=== PATIENT | male | born 1935 | race Caucasian/White ===

== ENCOUNTER → 2016-12-29 | Day surgery (SDC) | payer OTHER ==
[2016-12-25 15:49] VITALS: Ht 177.8 cm; Wt 75.0 kg
[~2016-12-29] VITALS: Ht 177.8 cm; Wt 75.0 kg
[~2016-12-29] MED LIST: ALBUAER19 INH; ASPI-435 PO; ATROPINE SULFATE 0.1 MG/ML 5ML SYR IV PRN; BUPIVACAINE 0.5 % 5 MG/1 ML PF 10ML VIAL ONE; CALC-393 PO; CEFAZOLIN 1000MG/55 ML D5W IV SCH; CEFU500T16 PO; CEPH-571 PO; CYAN100T PO; DOXY100C76 PO; FENTANYL CITRATE INJ 50 MCG/1 ML 2 ML VIAL IV PRN; FENTANYL CITRATE INJ 50 MCG/1 ML 2 ML VIAL ONE; GARL400T4 PO; HYDR-5688 PO; KRIL1000 PO; LACTATED RINGER'S 1000ML 1,000 ML IV SCH; LIDOCAINE HCL 1% 20 ML VIAL ONE; MRC50 PO; MULTTAB58 PO; ONDANSETRON INJ 2 MG/ML 2 ML VIAL IV PRN; OXYCODONE/ACETAMINOPHEN 5-325 TAB PO PRN; PROPOFOL IV EMULSION 10 MG/ML 20 ML VIAL IV ONE; SELE200T2 PO; SODIUM CHLORIDE 0.9% 1000ML 1,000 ML IV SCH; SYMIN160 INH; TRAV0.00 OPB
--- NOTE | 2016-12-29 06:39 | History & Physical Bridge - [place] ---
H&P Re-Evaluation Bridge Note: I have examined the patient, reviewed the History & Physical and in the interval since the performance of the History & Physical I have noted the following changes of clinical significance: No changes noted
--- NOTE | 2016-12-29 07:47 | [facility] Post Operative Brief Note ---
Immediate Operative Summary Operative Date December 29, 2016. Pre-Operative Diagnosis Right Long Finger Chronic Paronychial Infection Post-Operative Diagnosis Same Procedure(s) Performed Right Long Finger Incision And Drainage REMOVAL PARTIAL NAIL Surgeon Dr Rivera Graphics Programmer Surgeon(s) Saima Benjamin PA-C Estimated Blood Loss 0ml Findings ABOVE Specimens Culture Right Long Finger Drains NONE Anesthesia LOCAL IV SEDATION Complication(s) None Disposition
[2016-12-29 07:50] VITALS: TEMP 37
--- NOTE | 2016-12-29 07:54 | Discharge Instructions-SurgCtr ---
Discharge Instructions Date of Service December 29, 2016. Visit Reason for Visit: Right Long Finger Chronic Paronychial Infection Discharge Discharge Diagnosis / Problem: SAME ABOVE Discharge Goals Goal(s): Decrease discomfort, Improve function Activity Recommendations Activity Limitations: as noted below Lifting Limitations: until after follow-up appointment Exercise/Sports Limitations: until after follow-up appointment Shower/Bathe: keep incision dry Anesthesia . Post Anesthesia Instructions: If you have had General Anesthesia or IV Sedation: * Do not drive today. * Resume driving when surgeon permits. * Do not make important decisions or sign legal documents today. * Call surgeon for: 1. Temperature elevations greater than 101 degrees F. 2. Uncontrollable pain. 3. Excessive bleeding. 4. Persistent nausea and vomiting. 5. Medication intolerance (nausea, vomiting or rash). * For nausea and vomiting use only clear liquids such as: tea, soda, bouillon until nausea subsides, then gradually increase diet as tolerated. * If you have any concerns or questions, call your surgeon's office. If physician is unavailable and it is an emergency, call 911 or go to the nearest emergency room. . Instructions / Follow-Up Instructions / Follow-Up MEDICATIONS: * Resume previous medications unless instructed otherwise by your surgeon. * Always take pain medication on a full stomach or with food to avoid upset stomach. * Do not drink alcohol or drive while taking narcotics. * Ibuprofen or Tylenol may be taken if narcotic not needed. SPECIAL CARE INSTRUCTIONS: __ None _X_ Keep extremity elevated and iced x 48 hours; apply ice 20-30 minutes 8-10 times/day. May remove at night. __ Sling __24 hrs/day __ Remove at night __ Shoulder Immobilizer __ 24 hrs/day __ Remove at night _X_ Dressing _X_ Maintain until seen in office, may shower with plastic over site __ Remove dressings in 24-48 hours and then may shower __ Cover incisions with band-aids after showering __ Do not remove steri-strips Call physician if chills or temperature rises above 102 degrees or pain unrelieved by prescribed pain medications at . . Diet Recommendations Home Diet: resume previous diet Procedures Procedures Performed: Right Long Finger Incision And Drainage REMOVAL PARTIAL NAIL Pending Studies Studies pending at discharge: yes List of pending studies: AEROBIC CULTURE OF WOUND Medical Emergencies . Who to Call and When: Medical Emergencies: If at any time you feel your situation is an emergency, please call 911 immediately. . Non-Emergent Contact Non-Emergency issues call your: Primary Care Provider . . "Provider Documentation" section prepared by Lawrence Benjamin. .
[2016-12-29 08:28] VITALS: BP 141/87; PULSE 66; O2SAT 99
--- NOTE | 2016-12-29 08:28 | OPERATIVE REPORT ---
DATE OF OPERATION: 12/29/2016 PREOPERATIVE DIAGNOSIS: Chronic peroneal fracture, right long finger with possible foreign body of splinter. POSTOPERATIVE DIAGNOSIS: Same. PROCEDURE: I\T\D peroneal infection with removal of partial nail, debridement of tissue of the right long finger. SURGEON: Dr. Rivera. SURGICAL NURSE: Lawrence Benjamin PA-C. ANESTHESIOLOGIST: Dr. Harper. ANESTHESIA: Local with IV sedation. DRAINS: None. COMPLICATIONS: None. CONDITION: The patient tolerated the procedure well and returned to the recovery room in apparent satisfactory condition. INDICATIONS FOR SURGERY: Hussein is a 81-year-old male who had a splint underneath his nail months back. It has been festering and and causing peroneal infection. Would like to go ahead and I\T\D and clean it out. Procedure, expected outcomes, side effects were all explained. PROCEDURE: The patient was taken to the OR at which time he was placed supine on the operating table, given IV sedation. A finger block was done with 1% Xylocaine. Hand was then prepped and draped in usual sterile fashion for surgery. I used a 5/8 inch Hanson drain for Esmarch and tourniquet. We then took a 15 blade and lifted up the nail fold. Got a little bit of drainage out of it. You could see there was areas where it was staining, almost from the wood splinter that was in here partially with probably being absorbed. We then lifted up the nail and removed a portion of the ulnar aspect of the nail and drained out paronychial area. We irrigated it and debrided it. We did take a culture too. I used some Marcaine for postop pain control. I did pack it with Xeroform and put him in a sterile dressing Conform and returned back to recovery room in apparent satisfactory condition. I attest to the content of the Intraoperative Record and any orders documented therein. Any exceptio ns are noted below.
--- NOTE | 2016-12-29 08:38 | Anesthesia Progress Nt - [facility] ---
Anesthesia Post Op Note Date & Time December 29, 2016 at 08:38 Vital Signs Pain Intensity: 0 Vital Signs Past 12 Hours Date Time Temp Pulse Resp B/P Pulse Ox O2 Delivery O2 Flow Rate FiO2 12/29/16 08:28 66 16 141/87 99 Room Air 12/29/16 07:50 37.0 64 14 138/75 99 Room Air 12/29/16 06:29 36.5 70 134/82 96 Room Air Notes Mental Status: alert / awake / arousable, participated in evaluation Pt Amnestic to Procedure: Yes Nausea / Vomiting: adequately controlled Pain: adequately controlled Airway Patency, RR, SpO2: stable & adequate BP & HR: stable & adequate Hydration State: stable & adequate Anesthetic Complications: no major complications apparent
--- NOTE | 2017-01-27 13:38 | EDITING REQUIRED CODING QUERY ---
CQCODING QUERY DATE OF SERVICE: 12/29/16 To promote full compliance with coding requirements relating to patient care, provider participation is requested in all cases of head transfer clerk uncertainty. Please assist us with the question(s) below: Coding Question(s): WAS THE PROCEDURE DONE ON THE LEG OR FINGER; DICTATION STATES CHRONIC PERONEAL FRACTURE; DEBRIDEMENT OF RIGHT LONG FINGER. PER CODE BOOK PERONEAL IS LEG. Physician's Response(s): PLACE ANSWER HERE __finger I&D for chronic paronychial infection of the nail/finger Thank you Jimena Campbell Principal Diagnosis: "_that condition established after study, to be chiefly responsible for occasioning the admission of the patient to the hospital for care." Co-Existing Principal Diagnosis: "_when two or more diagnoses equally meet the criteria for principal diagnosis as determined by the circumstances of admission, diagnostic work up, and/or therapy provided, and the Alphabetic Index, Tabular List, or another coding guideline does not provide sequencing direction, any one of the diagnoses may be sequenced first." "When the physician has documented what appears to be a current diagnosis in the body of the record, but has not included the diagnosis in the final diagnostic statement, the physician should be asked whether the diagnosis should be added." (Source Coding [facility] 2 QTR90. p3-4)
== END | disposition home or self-care (01) ==
LOC: X.SURG 06:17
PROVIDERS: ATTEND Orthopaedic Surgery
DX: L03.011 Cellulitis of right finger (principal); Z85.820 Personal history of malignant melanoma of skin; J45.909 Unspecified asthma, uncomplicated; Z79.82 Long term (current) use of aspirin; M19.90 Unspecified osteoarthritis, unspecified site; L60.8 Other nail disorders

== ENCOUNTER → 2017-05-05 | Outpatient (CLI) | payer OTHER ==
[~2017-05-05] MED LIST changes: -ATROPINE SULFATE 0.1 MG/ML 5ML SYR IV PRN; -BUPIVACAINE 0.5 % 5 MG/1 ML PF 10ML VIAL ONE; -CEFAZOLIN 1000MG/55 ML D5W IV SCH; -FENTANYL CITRATE INJ 50 MCG/1 ML 2 ML VIAL IV PRN; -FENTANYL CITRATE INJ 50 MCG/1 ML 2 ML VIAL ONE; -LACTATED RINGER'S 1000ML 1,000 ML IV SCH; -LIDOCAINE HCL 1% 20 ML VIAL ONE; -ONDANSETRON INJ 2 MG/ML 2 ML VIAL IV PRN; -OXYCODONE/ACETAMINOPHEN 5-325 TAB PO PRN; -PROPOFOL IV EMULSION 10 MG/ML 20 ML VIAL IV ONE; -SODIUM CHLORIDE 0.9% 1000ML 1,000 ML IV SCH
[2017-05-05 17:19] LABS: BASO % 0.5 %; BASO ABS # 0.03 K/uL (0-0.2); COMPLETE YES; EOS % 3.4 %; HEMATOCRIT 42.4 % (42-52); IG% 0.2 %; LYMPH % 11.6 %; LYMPH ABS # 0.68 K/uL (1.2-3.4); MEAN CELL VOLUME 96.8 fL (80-100); MEAN CORPUSCULAR HEMOGLOBIN 31.5 pg (25-34); MEAN CORPUSCULAR HGB CONC 32.5 g/dl (32-36); MEAN PLATELET VOLUME 9.6 fL (7.4-10.4); MONO % 10.4 %; NEUT % 73.9 %; PLATELET COUNT 391 K/uL (130-400); RED BLOOD COUNT 4.38 M/uL (4.7-6.1); WHITE BLOOD COUNT 5.84 K/uL (4.8-10.8)
[2017-05-05 17:54] LABS: ALT/SGPT 30 U/L (12-78); BLOOD UREA NITROGEN 27 mg/dl (7-18); BUN/CREATININE RATIO 18.2 (10-20); C-REACTIVE PROTEIN 0.38 mg/dl (0-0.29); CARBON DIOXIDE 29 mmol/L (21-32); CHLORIDE 107 mmol/L (98-107); GLUCOSE 91 mg/dl (70-99); POTASSIUM 4.4 mmol/L (3.5-5.1); SODIUM 141 mmol/L (136-145)
[2017-05-05 17:57] LABS: ALB/GLOB RATIO 1.1 (0.9-2); ALKALINE PHOSPHATASE 80 U/L (45-117); AST/SGOT 28 U/L (15-37)
== END | disposition home or self-care (01) ==
LOC: C.LAB1850 15:15
PROVIDERS: ATTEND Physician Assistant
DX: K51.90 Ulcerative colitis, unspecified, without complications (principal)

== ENCOUNTER → 2017-09-23 | Outpatient (CLI) | payer OTHER ==
[~2017-09-23] MED LIST changes: -CEFU500T16 PO; -CEPH-571 PO; -DOXY100C76 PO; -HYDR-5688 PO
== END | disposition home or self-care (01) ==
LOC: C.LAB1850 13:38
PROVIDERS: ATTEND Internal Medicine Interventional Cardiology
DX: I73.9 Peripheral vascular disease, unspecified (principal)

== ENCOUNTER → 2017-10-08 | Outpatient (CLI) | payer OTHER ==
[2017-10-08 13:14] LABS: HEMATOCRIT 41.1 % (42-52); HEMOGLOBIN 13.5 g/dL (14.0-18.0); MEAN CELL VOLUME 97.9 fL (80-100); MEAN CORPUSCULAR HEMOGLOBIN 32.1 pg (25-34); MEAN CORPUSCULAR HGB CONC 32.8 g/dl (32-36); MEAN PLATELET VOLUME 9.3 fL (7.4-10.4); PLATELET COUNT 320 K/uL (130-400); RED CELL DISTRIBUTION WIDTH SD 46.4 fL (36.4-46.3); WHITE BLOOD COUNT 8.13 K/uL (4.8-10.8)
[2017-10-08 13:19] LABS: PTT PATIENT 23.4 SECONDS (21.0-31.0)
[2017-10-08 13:36] LABS: BLOOD UREA NITROGEN 24 mg/dl (7-18); CALCIUM 8.2 mg/dl (8.5-10.1); CARBON DIOXIDE 28 mmol/L (21-32); CREATININE 1.34 mg/dl (0.60-1.40); GLUCOSE 82 mg/dl (70-99); POTASSIUM 3.5 mmol/L (3.5-5.1); SODIUM 141 mmol/L (136-145)
== END | disposition home or self-care (01) ==
LOC: C.LAB1850 12:30
PROVIDERS: ATTEND Internal Medicine Interventional Cardiology
DX: Z01.818 Encounter for other preprocedural examination (principal)

== ENCOUNTER 2017-10-20 04:59 | Observation (INO) | payer OTHER ==
[2017-10-20] VITALS (11 sets, daily range): BP systolic 94–167; BP diastolic 57–72; PULSE 63–86; TEMP 36.4–37; O2SAT 97–99; Ht 177.8 cm; Wt 76.7 kg
[~2017-10-20] VITALS: Ht 177.8 cm; Wt 76.7 kg
[2017-10-20] MEDS ORDERED: [UNRECOGNIZED DRUG - CODE] PO (05:48)
[2017-10-20] MEDS ORDERED: SODIUM CHLORIDE 0.9% 1000ML IV SCH (06:00)
--- NOTE | 2017-10-20 07:27 | History and Physical ---
History & Physical Date Oct 20, 2017. Chief Complaint PAD, LE wound History of Present Illness Mr. Cantor is a very pleasant 82-year-old male with a history of asthma, borderline hypertension, remote atrial fibrillation, ulcerative colitis, hypothyroidism with slow healing left heel ulceration in the setting of PAD. Wound developed more than 1 month ago as a sore on his left Achilles tendon area. As part of his initial workup, he had ABIs which were noted to be 0.5 bilaterally, and he was referred for vascular ultrasound which showed TBIs of 0.3, on the right and 0.1 on the left consistent with severe/critical disease. His lower extremity ultrasound showed diffuse tibial disease on the right and apparent occlusion of his distal SFA/popliteal with reconstitution in the late popliteal followed by a diffuse tibial disease. The patient denies any history of diabetes. Denies any history of tobacco use. He has had issues with his back and reports some occasional numbness in his legs. Denies pam claudication, does report some pain in his legs when he is lying flat. Past Medical/Surgical History Medical Problems: (1) Asthma (2) chest pain, cholecystitis (3) Gallstone (4) Hypothyroidism, unspecified (5) Kidney stones (6) Melanoma (7) Senile nuclear cataract (8) Ulcerative colitis, unspecified (9) Vitamin D deficiency Additional History Hepatic Disease: No Endocrine Disorder: Yes Kidney Disease: Yes Hypertension: Yes Heart Disease: Yes Bleeding Tendencies: No Infectious Diseases: No Other: 1. Asthma, followed by Dr. Gómez. 2. Ulcerative colitis. 3. Hypothyroidism. 4. Cholelithiasis. 5. Remote atrial fibrillation in the , not on anticoagulation. 6. Borderline hypertension. Allergies Coded Allergies: Sulfa Antibiotics (Verified Allergy, Intermediate, HIVES, 10/20/17) Salmeterol (Verified Adverse Reaction, Intermediate, ATRIAL FIBRILLATION, 10/20/17) Home Medications Scheduled Aspirin (Aspirin 81), 81 MG PO QPM Calcium Carbonate (Calcium), 600 MG PO QAM Cyanocobalamin (Vitamin B-12), 100 MCG PO QAM Garlic-Calcium (Garlic), 1,000 MG PO QAM Mercaptopurine (Mercaptopurine), 50 MG PO QAM Multiple Vitamin (Multivitamin), 1 TAB PO QAM [place]-3 Fatty Acids ([place] Oil), 1 CAP PO DAILY Selenium (Selenimin-200), 200 MCG PO QAM Travoprost (Travatan Z), 1 DROP OPB HS Scheduled PRN Albuterol Inhaler (Ventolin Inhaler), 2 PUFFS INH QID PRN for PRN Budesonide/Formoterol Fumarate (Symbicort 160/4.5 Inhaler ), 1 PUFFS INH BID PRN for PRN Physical Examination Skin: warm/dry Eyes: normal inspection Neck: supple Respiratory/Chest: lungs clear, normal breath sounds Cardiovascular: regular rate, rhythm Abdomen / GI: normal bowel sounds Extremities: normal inspection, + pertinent finding (Left heel dressed, C/D/I. PT/DP pulses non-palpable) Neurologic/Psych: alert, oriented x 3 Diagnosis Non-healing wound; Peripheral arterial disease ASA Classification: ASA Class III Plan of Treatment Proceed with bilateral LE angiogram and possible intervention
--- NOTE | 2017-10-20 07:29 | Pre Sedation Assessment ---
Pre Sedation Assessment General Date of Sedation: Oct 20, 2017. Vital Signs Past 12 Hours Date Time Temp Pulse Resp B/P (MAP) Pulse Ox O2 Delivery O2 Flow Rate FiO2 10/20/17 05:56 36.4 63 18 167/70 (102) 98 Room Air Review Cardiovascular: regular rate, rhythm, no edema Lungs: chest non-tender, lungs clear Pre-Sedation Airway Assessment Smoking Status: Never Smoker Hx of Sleep Apnea: No Hx of difficult intubation: No Short Thick Neck: No Thyro-mental Distance: > 3 Finger Breadths Oral Cavity: Capped Teeth Mallampati Classification: Class II ASA Classification: Class III NPO Status Date of Last Intake of Fluids: Oct 19, 2017 Time of Last Intake of Fluids: 2229 Date of Last Intake of Solids: Oct 19, 2017 Time of Last Intake of Solids: 1829 Procedure Planning Contraindications for Sedation: None Current Medications Reviewed: Yes Notes The planned sedation has been discussed with the patient. Informed Consent was obtained. I have identified the patient, determined the appropriateness of sedation and have assessed the patient immediately prior to the procedure. All medicine(s) and interventions are by my order.
[2017-10-20] MEDS ORDERED: FENTANYL CITRATE INJ 50 MCG/1 ML 2 ML VIAL ONE ×2 (07:39→08:47)
[2017-10-20] MEDS ORDERED: HEPARIN SOD (PORCINE) 1000 UNIT/ML 10 ML VIAL ONE (07:39)
[2017-10-20] MEDS ORDERED: MIDAZOLAM HCL 1 MG/ML 2ML VIAL ONE ×2 (07:39→08:47)
[2017-10-20] MEDS ORDERED: NiCARDipine HCL INJ 2.5 MG/ML 10 ML AMP ONE (07:40)
[2017-10-20] MEDS ORDERED: NITROGLYCERIN/D5W 100MCG/ML 20ML SYR ONE (07:45)
[2017-10-20] MEDS ORDERED: NITROGLYCERIN 5 MG/ML 10 ML VIAL ONE (07:50)
[2017-10-20] MEDS ORDERED: FENTANYL CITRATE INJ 50 MCG/1 ML 2 ML VIAL IV ONE ×4 (08:21→09:06)
[2017-10-20] MEDS ORDERED: MIDAZOLAM HCL 1 MG/ML 2ML VIAL IV ONE ×2 (08:21→08:40)
[2017-10-20] MEDS ORDERED: LIDOCAINE HCL 1% 20 ML VIAL INJ ONE (08:21)
[2017-10-20] MEDS ORDERED: HEPARIN SOD (PORCINE) 1000 UNIT/ML 10 ML VIAL IV ONE ×2 (08:45→09:06)
[2017-10-20] MEDS ORDERED: ORM MISCELLANEOUS MED XX ONE ×3 (09:22→09:45)
[2017-10-20] MEDS ORDERED: HydrALAZINE HCL 20 MG/ML VIAL ONE (09:45)
[2017-10-20] MEDS ORDERED: HydrALAZINE HCL 20 MG/ML VIAL IV. ONE (09:46)
[2017-10-20] MEDS ORDERED: IODIXANOL (VISIPAQUE) 270 MG/ML 150ML FLUSH ONE (09:57)
[2017-10-20] MEDS ORDERED: CLOPIDOGREL BISULFATE 300 MG TAB PO STA (10:07)
--- NOTE | 2017-10-20 10:13 | Post Sedation Assessment ---
Post Sedation Assessment General Date of Sedation Oct 20, 2017. Vital Signs: Vital Signs Past 12 Hours Date Time Temp Pulse Resp B/P (MAP) Pulse Ox O2 Delivery O2 Flow Rate FiO2 10/20/17 09:40 Mask 4 10/20/17 09:35 Mask 4 10/20/17 09:30 Mask 4 10/20/17 09:25 Mask 4 10/20/17 09:20 Mask 4 10/20/17 09:15 Mask 4 10/20/17 09:10 Mask 4 10/20/17 09:05 Mask 4 10/20/17 09:00 Mask 4 10/20/17 08:55 Mask 4 10/20/17 08:50 Mask 4 10/20/17 08:45 Mask 4 10/20/17 08:40 Mask 4 10/20/17 08:35 Mask 4 10/20/17 08:30 Mask 4 10/20/17 08:25 Mask 4 10/20/17 08:20 Mask 4 10/20/17 08:15 67 11 199/95 99 Mask 4 10/20/17 05:56 36.4 63 18 167/70 (102) 98 Room Air Post Procedure Recovery Score Activity: (2) Moves 4 extremities * Respiration: (2) Deep breath/cough Circulation: (2) +/-20% PreAnes Value Consciousness: (2) Fully Awake Oxygen Saturation: (2) > 92% On Room Air Discharge Sedation Level of Care: Fast Track Phase II Post Sedation Plan On clinical assessment, the patient appears to have tolerated the sedation without complications. Patient is recovering as anticipated. Patient will continue to be monitored by nursing and may be discharged when sedation discharge criteria are met per below protocol. Upon Completions of procedure and additional 15 minutes continue every 5 minute vital signs and the P.A.R. score; then discharge to a Phase I or Fast Track to Phase II per the following guidelines: * Discharge Patient to appropriate Phase II area if PAR is 8 or greater or return to pre- procedure baseline. The post - procedure orders will be as directed. * If PAR score is less than 8 or not return to pre-procedure baseline then patient will follow Phase I monitoring till PAR is reached for Phase II. The Phase I may be done in procedure room or may call to secure a Phase I area. * If naloxone or flumazenil are used for reversal, hold in Phase I for an additional 60 -120 minutes before discharge to Phase II. Please call the Sedation Physician to re-evaluate and complete post-note for discharge to Phase II area. Do NOT discharge from procedure sedation or Phase 1 until post- sedation evaluation note is complete by procedure /sedation MD Sedation Discharge Instructions to be given to the patient at discharge to home.
[2017-10-20] MEDS ORDERED: ACETAMINOPHEN 325 MG TAB PO PRN (10:15)
[2017-10-20] MEDS ORDERED: ONDANSETRON INJ 2 MG/ML 2 ML VIAL IV PRN (10:15)
[2017-10-20] MEDS ORDERED: ALBUTEROL HFA 8 GM INHALER INH PRN (10:15)
[2017-10-20] MEDS ORDERED: BUDESONIDE/FORMOTEROL FUMARATE 160/4.5 60 PUFFS/INHALER INH PRN (10:15)
--- NOTE | 2017-10-20 10:25 | [facility] Operative Report ---
Operative Report Operative Date Oct 20, 2017. Pre-Operative Diagnosis peripheral artery disease Post-Operative Diagnosis peripheral artery disease Procedure(s) Performed Bilateral Lower Extremity Angiogram, Percutaneous Transluminal Angioplasty Left Superficial Femoral Artery, Mechanical Closure Right Femoral Artery, Moderate Concious Sedation [address] Juan Dial Software Applications Designer Surgeon(s) none Estimated Blood Loss 35 ml Findings Right common femoral access obtained, short 5Fr sheath place LLE angiogram performed with RIM catheter Selective angiogram with glidecatheter to SFA to visualize the foot Distal SFA occlusion crossed with glideadvantage wire and glidecatheter Lesion dilated with 4.0 and 6.0 balloons. Dilated lesion treated with 6.0 x 120 LookSharp (powering InternMatch)tronic ANN MARIE Attempted to wire INTERVIEWING CLERK but unsuccessful. Post procedure no apparent dissection/perforation with minimal residual stenosis. StarClose use for closure was unsuccessful. Manual pressure held. Transient hypotension responded to IV fluids. Summary: 1. Left lower extremity occluded distal SFA 2. Occluded distal INTERVIEWING CLERK/peroneal 3. Right lower extremity with severe distal SFA/popliteal disease and slow distal flow 4. Successful INTERVIEWING CLERK of left distal SFA occlusion with drug-eluting balloon. Specimens none Drains None Anesthesia Type IV Sedat Cons RN Only Complication(s) Unsuccessful closure device Disposition yes PCU Indications PAD, lower extremity ulceration I attest to the content of the Intraoperative Record and any orders documented therein. Any exceptions are noted below.
[2017-10-20] MEDS ORDERED: NURSING VERBAL MED ORDER ONE (10:30)
[2017-10-20] MEDS ORDERED: SODIUM CHLORIDE 0.9% 1000ML 1,000 ML IV SCH ×2 (11:00)
[2017-10-20 11:15] LABS: HEMATOCRIT 37.3 % (42-52); HEMOGLOBIN 12.2 g/dL (14.0-18.0)
[2017-10-20] MEDS ORDERED: CLOPIDOGREL BISULFATE 300 MG TAB PO ONE (12:40)
[2017-10-20] MEDS: MERCAPTOPURINE 50 MG TAB PO SCH (13:30)
[2017-10-20] MEDS: CYANOCOBALAMIN 100 MCG TAB (VIT B-12) PO SCH (13:30)
[2017-10-20] MEDS ORDERED: IV FLUIDS COMPLETED PRN (14:00)
[2017-10-20] MEDS ORDERED: TRAVOPROST Z 0.004% OPH SOLN 2.5 ML BTL OPB SCH (21:00)
[2017-10-21 04:00] VITALS: BP 129/71; PULSE 93; TEMP 36.8; O2SAT 97
[2017-10-21 06:52] LABS: HEMATOCRIT 37.9 % (42-52); HEMOGLOBIN 12.6 g/dL (14.0-18.0); MEAN CELL VOLUME 96.4 fL (80-100); MEAN CORPUSCULAR HEMOGLOBIN 32.1 pg (25-34); MEAN CORPUSCULAR HGB CONC 33.2 g/dl (32-36); MEAN PLATELET VOLUME 9.1 fL (7.4-10.4); PLATELET COUNT 238 K/uL (130-400); RED CELL DISTRIBUTION WIDTH CV 13.9 % (11.5-14.5); RED CELL DISTRIBUTION WIDTH SD 49.3 fL (36.4-46.3); WHITE BLOOD COUNT 8.19 K/uL (4.8-10.8)
[2017-10-21 07:00] VITALS: BP 153/81; PULSE 73; TEMP 36.7; O2SAT 96
[2017-10-21 07:24] LABS: CALCIUM 7.8 mg/dl (8.5-10.1); CREATININE 1.35 mg/dl (0.60-1.40); POTASSIUM 4.1 mmol/L (3.5-5.1)
[2017-10-21] MEDS ORDERED: PLV75 PO (08:06)
--- NOTE | 2017-10-21 08:08 | Discharge Instructions ---
Discharge Instructions Procedure Procedure Date: Oct 21, 2017. Reason for Visit: Peripheral Artery Disease. Discharge Discharge Date: Oct 21, 2017. Discharge Diagnosis: Peripheral arterial disease Last Recorded Wt (Kilograms): 76.700 Anesthesia Post Anesthesia Instructions: If you have had General Anesthesia or IV Sedation: * Do not drive today. * Resume driving when surgeon permits. * Do not make important decisions or sign legal documents today. * Call surgeon for: 1. Temperature elevations greater than 101 degrees F. 2. Uncontrollable pain. 3. Excessive bleeding. 4. Persistent nausea and vomiting. 5. Medication intolerance (nausea, vomiting or rash). * For nausea and vomiting use only clear liquids such as: tea, soda, bouillon until nausea subsides, then gradually increase diet as tolerated. * If you have any concerns or questions, call your surgeon's office. If physician is unavailable and it is an emergency, call 911 or go to the nearest emergency room. Instructions Activity Recommendations: limitations as noted below Recommended Home Diet: resume previous diet, low sodium, low cholesterol Allergies: Coded Allergies: Sulfa Antibiotics (Verified Allergy, Intermediate, HIVES, 10/20/17) Salmeterol (Verified Adverse Reaction, Intermediate, ATRIAL FIBRILLATION, 10/20/17) Follow Up Additional Instructions: ACTIVITY RECOMMENDATIONS: It is common to feel weak and fatigue for a few days. * Do not drive or operate any motorized equipment for the next 2 days. * Limit stair usage (2 or 3 trips a day only) for the next three days. * Do not lift anything heavier than 10 pounds for the next three days. * Do not engage in vigorous exercise or any sports for the next five days. * You may shower the day after your procedure, but do not immerse the area for three days. Cleanse the site gently with soap and water. SPECIAL CARE INSTRUCTIONS: * You may replace the pressure dressing or band-aid the morning after the procedure. * After your procedure, it is normal to have a small bruise or small lump at the site. Examine your site daily for any change in the bruise or lump, redness, swelling, drainage or numbness. Notify your doctor if any change. BLEEDING: * If there is a small amount of bleeding at the site, lie down and apply firm pressure with a clean cloth for ten minutes. When the bleeding stops, lie quietly keeping the procedure limb straight for six hours. Notify your doctor as soon as possible. * If the bleeding does not stop after ten minutes or if there is a large amount of bleeding or spurting, call 911 immediately. Continue to lie down and hold firm pressure until help arrives. SKIN IRRITATION: * You may experience some redness and/or swelling in the area where radiation was administered. If any skin irritation occurs, please contact your family physician. FOLLOW UP VISIT: Keep any scheduled doctor appointments. Follow-up with: Dr. Dial 1 month. Sara Leon Recommendations: Call your doctor if: * Temperature above 101 degrees * Pain not relieved by pain medicine ordered * There is increased drainage or redness from any incision * You have any unanswered questions or concerns. Your Doctors Instructions noted above were prepared by provider Kodi Dial. Patient Signature Section: Patient Instructions Signature Page Hussein Cantor Patient (or Guardian) Signature/Date: I have read and understand the instructions given to me by my caregivers. Caregiver/RN/Doctor Signature/Date: The above-named patient and/or guardian has received patient instructions on this date. + Original Patient Signature Page (only) stays with chart. Please make copy for patient.
[2017-10-21] MEDS: CYANOCOBALAMIN 100 MCG TAB (VIT B-12) PO SCH (08:34)
[2017-10-21] MEDS: MERCAPTOPURINE 50 MG TAB PO SCH (08:34)
[2017-10-21] MEDS ORDERED: CLOPIDOGREL BISULFATE 75 MG TAB PO SCH (09:00)
[2017-10-21] MEDS ORDERED: ASPIRIN 81 MG ECTAB PO SCH (09:00)
[2017-10-21] MEDS ORDERED: MULTIVITAMIN TAB PO SCH (09:00)
[2017-10-21 09:03] VITALS: BP 153/81; PULSE 73; TEMP 36.7; O2SAT 96
--- NOTE | 2017-10-22 01:19 | DISCHARGE SUMMARY ---
PRINCIPAL DIAGNOSES: 1. Peripheral arterial disease. 2. Lower extremity ulceration. PROCEDURES: 1. Bilateral peripheral angiogram. 2. REWRITER of left distal SFA with drug-eluting balloon. HISTORY OF PRESENT ILLNESS: Mr. Cantor is a very pleasant 82-year-old man with a history of asthma, borderline hypertension, ongoing atrial fibrillation, ulcerative colitis, hypothyroidism who was recently seen at the wound care center in the setting of a slow healing left heel ulceration. He had previously undergone a lower extremity arterial duplex which showed apparent occlusion of the distal SFA with reconstitution of the popliteal artery as well as distal tibial disease. His ABIs were 0.5 bilaterally with a TBI of 0.3 on the right. As a result, was brought in for bilateral lower extremity angiogram and possible intervention. HOSPITAL COURSE: The patient underwent angiogram via right common femoral artery. He was found to have an occluded distal SFA with 1-vessel distal runoff. He underwent intervention with balloon angioplasty to SFA and eventual definitive treatment with drug-eluting balloon. Post-procedure, he had a good angiographic result with brisk 1-vessel flow and intact pedal loop with good blush to left heel ulceration site. Following angiogram, closure device placement was attempted with a StarClose to the right common femoral artery; however, device placement was unsuccessful and the patient developed a hematoma with associated hypotension. Hypotension responded to IV fluid and manual compression was held on the right common femoral artery due to borderline pressures. He was admitted for observation overnight. Pressure remained stable. His repeat blood counts were unchanged. He had no further pain in his access site or his left arm. On the day of discharge, he was feeling well. He had mild ecchymosis around his access site but no other hematoma and intact pulses bilaterally. The patient thought safe for discharge and will continue on dual antiplatelet therapy for 1 month. He will follow up with me in 1 month. If in the future would have continued slow healing of ulceration, potential intervention on the left posterior tibial artery could be entertained via a retrograde approach. DISCHARGE MEDICATIONS: 1. Albuterol. 2. Aspirin 81. 3. Symbicort. 4. Calcium carbonate. 5. Clopidogrel 75 mg daily. 6. Cyanocobalamin. 7. Mercaptopurine. 8. Multivitamin. 9. [place] 3 fatty acid. 10. ____ 11. Travoprost.
== END 2017-10-21 10:10 | disposition home or self-care (01) ==
LOC: C.ACU 04:59 → C.2T 10:13
PROVIDERS: ADMIT Internal Medicine Interventional Cardiology; ATTEND Internal Medicine Interventional Cardiology
DX: I73.9 Peripheral vascular disease, unspecified (principal); L97.429 Non-pressure chronic ulcer of left heel and midfoot with unspecified severity; J45.909 Unspecified asthma, uncomplicated; I10 Essential (primary) hypertension; I48.91 Unspecified atrial fibrillation; E03.9 Hypothyroidism, unspecified; E55.9 Vitamin D deficiency, unspecified; Z88.2 Allergy status to sulfonamides; Z88.8 Allergy status to other drugs, medicaments and biological substances; Z79.82 Long term (current) use of aspirin; Z79.899 Other long term (current) drug therapy

== ENCOUNTER → 2017-10-26 | Outpatient (CLI) | payer OTHER ==
[~2017-10-26] MED LIST changes: -KRIL1000 PO; +PLV75 PO; +[UNRECOGNIZED DRUG - CODE] PO
[2017-10-26 16:38] LABS: BASO % 0.4 %; BASO ABS # 0.02 K/uL (0-0.2); EOS % 3.8 %; EOS ABS # 0.21 K/uL (0-0.5); HEMATOCRIT 39.3 % (42-52); HEMOGLOBIN 12.9 g/dL (14.0-18.0); IG# 0.01 K/uL (0.00-0.02); LYMPH ABS # 0.88 K/uL (1.2-3.4); MEAN CELL VOLUME 97.5 fL (80-100); MEAN CORPUSCULAR HGB CONC 32.8 g/dl (32-36); MONO % 5.6 %; MONO ABS # 0.31 K/uL (0.11-0.59); NEUT ABS # 4.06 K/uL (1.4-6.5); PLATELET COUNT 292 K/uL (130-400); RED CELL DISTRIBUTION WIDTH CV 13.9 % (11.5-14.5); RED CELL DISTRIBUTION WIDTH SD 49.8 fL (36.4-46.3); WHITE BLOOD COUNT 5.49 K/uL (4.8-10.8)
[2017-10-26 17:16] LABS: ALBUMIN 3.6 gm/dl (3.4-5.0); ALT/SGPT 30 U/L (12-78); BLOOD UREA NITROGEN 30 mg/dl (7-18); CALCIUM 8.8 mg/dl (8.5-10.1); CARBON DIOXIDE 28 mmol/L (21-32); CHOLESTEROL 175 mg/dl (0-200); CREATININE 1.41 mg/dl (0.60-1.40); GLUCOSE 78 mg/dl (70-99); POTASSIUM 4.1 mmol/L (3.5-5.1); SODIUM 142 mmol/L (136-145); URIC ACID 4.5 mg/dl (2.6-7.2)
[2017-10-26 17:26] LABS: ALKALINE PHOSPHATASE 74 U/L (45-117); AST/SGOT 23 U/L (15-37); LDL CHOLESTEROL CALCULATED 93 mg/dl; TOTAL PROTEIN 6.9 gm/dl (6.4-8.2); TRANSFERRIN 220 mg/dl (200-360)
[2017-10-27 06:56] LABS: HEMOGLOBIN A1C 5.9 % (4.5-5.6)
== END | disposition home or self-care (01) ==
LOC: C.LAB1850 15:32
PROVIDERS: ATTEND Family Medicine
DX: R73.09 Other abnormal glucose (principal); E55.9 Vitamin D deficiency, unspecified; D51.9 Vitamin B12 deficiency anemia, unspecified; E78.9 Disorder of lipoprotein metabolism, unspecified; R53.83 Other fatigue

== ENCOUNTER → 2017-11-09 | Outpatient (CLI) | payer OTHER | END | disposition home or self-care (01) | LOC: C.LABSPEC 14:37 | PROVIDERS: ATTEND Family Medicine | DX: R31.9 Hematuria, unspecified (principal) ==

== ENCOUNTER → 2017-11-11 | Outpatient (CLI) | payer OTHER | END | disposition home or self-care (01) | LOC: C.MAMM 12:29 | PROVIDERS: ATTEND Family Medicine | DX: M81.0 Age-related osteoporosis without current pathological fracture (principal); Z79.52 Long term (current) use of systemic steroids ==

== ENCOUNTER → 2017-11-23 | Outpatient (CLI) | payer OTHER | END | disposition home or self-care (01) | LOC: C.LAB 15:23 | PROVIDERS: ATTEND Family Medicine | DX: R31.9 Hematuria, unspecified (principal) ==